=== PATIENT | female | born 2000 | race Hispanic/Latino ===

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

== ENCOUNTER 2025-03-17 21:47 | Emergency (ER) | payer BC, OTHER, SELFPAY ==
[2025-03-17] MEDS ORDERED: HYDROcodone/Acetaminophen 10/325 mg Tablet ONE (22:39)
== END 2025-03-17 22:50 | disposition home or self-care (01) ==
LOC: ERS 21:47
DX: S90.32XA Contusion of left foot, initial encounter (principal); W18.40XA Slipping, tripping and stumbling without falling, unspecified, initial encounter
CPT/HCPCS: 99283